=== PATIENT | male | born 1960 | race Caucasian/White ===

== ENCOUNTER → 2017-12-23 | Outpatient (CLI) | payer BC ==
--- NOTE | 2017-12-23 08:32 | CT ---
EXAMINATION TYPE: CT brain wo/w con DATE OF EXAM: 12/23/2017 COMPARISON: NONE HISTORY: Left sided foot tingling per patient. CT DLP: 2128.6mGycm CONTRAST: CT scan of the head is performed without and with IV Contrast, patient injected with 100 mL of Omnipa que 300. Unenhanced followed by contrast enhanced CT of the brain is submitted for evaluation. The ventricles are midline. There is no evidence for intracranial hemorrhage or extra-axial collecti on. No mass effects are identified. Visualized bony calvarium is intact. There is calcification of the anterior interhemispheric fissure. Contrast is administered and no enhancing lesions are detecte d. No pathologic enhancement is identified. If symptoms persist consider MRI. IMPRESSION: 1. No evidence for enhancing meningioma or other lesion.
== END | disposition home or self-care (01) ==
LOC: RADCTMAIN 07:59
PROVIDERS: ATTEND Psychiatry & Neurology Neurology
DX: D32.0 Benign neoplasm of cerebral meninges (principal)
CPT/HCPCS: 70470; Q9967

== ENCOUNTER 2018-11-13 11:23 | Observation (INO) | payer BC ==
--- NOTE | 2018-11-13 12:27 | ED ---
General Adult HPI - General Chief complaint: Chest Pain Stated complaint: chest pain Time Seen by Provider: 11/13/18 12:18 Source: patient, RN notes reviewed, old records reviewed Mode of arrival: wheelchair Limitations: physical limitation (Patient hard of hearing) - History of Present Illness Initial comments: 57-year-old male presenting for evaluation of chest pain. Patient is very hard of hearing and history somewhat difficult. Patient states he's had intermittent chest pain for the past one week. This is substernal. Patient denies nausea or vomiting. Denies abdominal pain. Denies diaphoresis. Patient has no known history of coronary artery disease, he has a very strong family history including a father and brother who in their early 50s. Patient has hypercholesterolemia. He is a previous smoker, quit 5 months ago. No pain at the time my evaluation. - Related Data Home Medications Medication Instructions Recorded Confirmed Multivit-Mins/Iron/Folic/Lycop 1 each PO DAILY 01/31/16 01/31/16 [Centrum Men's Tablet] Gabapentin [Neurontin] caplet PO DAILY 02/03/16 02/03/16 Allergies Allergy/AdvReac Type Severity Reaction Status Date / Time atorvastatin Allergy achy Verified 11/13/18 11:55 joints & muscles fenofibrate Allergy warm, Verified 11/13/18 11:55 itchy, rash fenofibrate nanocrystallized Allergy warm, Verified 11/13/18 11:55 [From Tricor] itchy, rash fenofibrate,micronized Allergy warm, Verified 11/13/18 11:55 [From Tricor] itchy, rash gemfibrozil Allergy Rash/Hives Verified 11/13/18 13:41 niacin Allergy warm, Verified 11/13/18 11:55 [From Niaspan itchy, rash Extended-Release] pravastatin Allergy Rash/Hives Verified 11/13/18 13:41 Review of Systems ROS Statement: Those systems with pertinent positive or pertinent negative responses have been documented in the HPI. ROS Other: All systems not noted in ROS Statement are negative. Past Medical History Past Medical History: Hyperlipidemia Additional Past Medical History / Comment(s): clausterphobia, hard of hearing History of Any Multi-Drug Resistant Organisms: None Reported Additional Past Surgical History / Comment(s): tooth abscess, colonoscpy Past Anesthesia/Blood Transfusion Reactions: No Reported Reaction Additional Past Anesthesia/Blood Transfusion Reaction / Comment(s): never recv' d anesthesia or blood transfusion Past Psychological History: Anxiety Smoking Status: Current every day smoker Past Alcohol Use History: Heavy Past Drug Use History: None Reported - Past Family History Mother Family Medical History: Coronary Artery Disease (CAD), Hyperlipidemia Father Family Medical History: COPD, Myocardial Infarction ([place]) General Exam Limitations: no limitations General appearance: alert, in no apparent distress Head exam: Present: atraumatic, normocephalic Eye exam: Present: normal appearance, PERRL ENT exam: Present: normal exam Neck exam: Present: normal inspection. Absent: tenderness, meningismus Respiratory exam: Present: normal lung sounds bilaterally. Absent: respiratory distress, wheezes Cardiovascular Exam: Present: regular rate, normal rhythm GI/Abdominal exam: Present: soft. Absent: distended, tenderness Extremities exam: Present: normal inspection, normal capillary refill. Absent: pedal edema, calf tenderness Neurological exam: Present: alert, oriented X3, CN II-XII intact. Absent: motor sensory deficit Psychiatric exam: Present: normal affect, normal mood Skin exam: Present: warm, dry, intact. Absent: cyanosis, diaphoretic Course Vital Signs 11/13/18 11/13/18 11:55 13:10 Temperature 98 F Pulse Rate 77 83 Respiratory 18 18 Rate Blood Pressure 146/81 O2 Sat by Pulse 98 96 Oximetry EKG Findings - EKG Comments: EKG Findings:: EKG: Normal sinus rhythm, ventricular rate is 76, WA interval 154 , QRS duration 78, QTC 42, no ST segment elevation or depression Medical Decision Making - Medical Decision Making 57-year-old male history of hypercholesterolemia, this sounds like it may be a familial hypercholesterolemia however this is not documented in the medical record and the patient is uncertain. Previous history of tobacco use presenting with intermittent chest pain. EKG nonischemic. Chest x-ray negative for any acute cardiopulmonary disease, patient has normal CBC, normal CMP, initial troponin is negative. Given the patient's risk factors he will be admitted for serial cardiac enzymes, telemetry, and cardiology consultation. Case is discussed with admitting physician Dr. Gutierrez - Lab Data Result diagrams: 11/13/18 12:12 11/13/18 12:12 Lab Results 11/13/18 11/13/18 11/13/18 Range/Units 12:12 12:12 12:12 WBC 6.5 (3.8-10.6) k/uL RBC 5.10 (4.30-5.90) m/uL Hgb 15.6 (13.0-17.5) gm/dL Hct 45.5 (39.0-53.0) % MCV 89.2 (80.0-100.0) fL MCH 30.5 (25.0-35.0) pg MCHC 34.2 (31.0-37.0) g/dL RDW 11.9 (11.5-15.5) % Plt Count 209 (150-450) k/uL Neutrophils % 62 % Lymphocytes % 30 % Monocytes % 5 % Eosinophils % 1 % Basophils % 1 % Neutrophils # 4.1 (1.3-7.7) k/uL Lymphocytes # 1.9 (1.0-4.8) k/uL Monocytes # 0.3 (0-1.0) k/uL Eosinophils # 0.1 (0-0.7) k/uL Basophils # 0.0 (0-0.2) k/uL PT (9.0-12.0) sec INR (<1.2) APTT (22.0-30.0) sec Sodium 143 (137-145) mmol/L Potassium 4.5 (3.5-5.1) mmol/L Chloride 107 (98-107) mmol/L Carbon Dioxide 24 (22-30) mmol/L Anion Gap 12 mmol/L BUN 13 (9-20) mg/dL Creatinine 0.65 L (0.66-1.25) mg/dL Est GFR (CKD-EPI)AfAm >90 (>60 ml/min/1.73 sqM) Est GFR (CKD-EPI)NonAf >90 (>60 ml/min/1.73 sqM) Glucose 102 H (74-99) mg/dL Calcium 10.2 (8.4-10.2) mg/dL Magnesium 2.0 (1.6-2.3) mg/dL Total Bilirubin 0.5 (0.2-1.3) mg/dL AST 29 (17-59) U/L ALT 48 (21-72) U/L Alkaline Phosphatase 87 (38-126) U/L Total Creatine Kinase 88 (55-170) U/L CK-MB (CK-2) 1.0 (0.0-2.4) ng/mL CK-MB (CK-2) Rel Index 1.1 Troponin I <0.012 (0.000-0.034) ng/mL Total Protein 8.0 (6.3-8.2) g/dL Albumin 5.0 (3.5-5.0) g/dL 11/13/18 Range/Units 12:12 WBC (3.8-10.6) k/uL RBC (4.30-5.90) m/uL Hgb (13.0-17.5) gm/dL Hct (39.0-53.0) % MCV (80.0-100.0) fL MCH (25.0-35.0) pg MCHC (31.0-37.0) g/dL RDW (11.5-15.5) % Plt Count (150-450) k/uL Neutrophils % % Lymphocytes % % Monocytes % % Eosinophils % % Basophils % % Neutrophils # (1.3-7.7) k/uL Lymphocytes # (1.0-4.8) k/uL Monocytes # (0-1.0) k/uL Eosinophils # (0-0.7) k/uL Basophils # (0-0.2) k/uL PT 10.6 (9.0-12.0) sec INR 1.0 (<1.2) APTT 25.6 (22.0-30.0) sec Sodium (137-145) mmol/L Potassium (3.5-5.1) mmol/L Chloride (98-107) mmol/L Carbon Dioxide (22-30) mmol/L Anion Gap mmol/L BUN (9-20) mg/dL Creatinine (0.66-1.25) mg/dL Est GFR (CKD-EPI)AfAm (>60 ml/min/1.73 sqM) Est GFR (CKD-EPI)NonAf (>60 ml/min/1.73 sqM) Glucose (74-99) mg/dL Calcium (8.4-10.2) mg/dL Magnesium (1.6-2.3) mg/dL Total Bilirubin (0.2-1.3) mg/dL AST (17-59) U/L ALT (21-72) U/L Alkaline Phosphatase (38-126) U/L Total Creatine Kinase (55-170) U/L CK-MB (CK-2) (0.0-2.4) ng/mL CK-MB (CK-2) Rel Index Troponin I (0.000-0.034) ng/mL Total Protein (6.3-8.2) g/dL Albumin (3.5-5.0) g/dL Disposition Clinical Impression: Chest pain Disposition: ADMITTED IP TO THIS [facility] Condition: Stable Is patient prescribed a controlled substance at d/c from ED?: No Referrals: Jimmy Hill DO [Primary Care Provider] - 1-2 days Decision to Admit Reason: Admit from EC Decision Date: 11/13/18 Decision Time: 14:18
--- NOTE | 2018-11-13 12:47 | XR ---
EXAMINATION TYPE: XR chest 2V DATE OF EXAM: 11/13/2018 COMPARISON: NONE HISTORY: Shortness of breath TECHNIQUE: Frontal and lateral views of the chest are obtained. FINDINGS: Scattered senescent parenchymal changes noted. Hyperinflation compatible with COPD. No evidence for infiltrate. No evidence for atelectasis. Heart size is stable. Mediastinal structures are stable and grossly unremarkable. No evidence for hilar prominence. Degenerative changes dorsal spine. IMPRESSION: 1. No evidence for acute pulmonary disease.
[2018-11-13 12:54] LABS: Basophils % (A) 1 %; Eosinophils # (A) 0.1 k/uL (0-0.7); Eosinophils % (A) 1 %; HCT 45.5 % (39.0-53.0); HGB 15.6 gm/dL (13.0-17.5); Lymphocytes # (A) 1.9 k/uL (1.0-4.8); Lymphocytes % (A) 30 %; MCH 30.5 pg (25.0-35.0); MCHC 34.2 g/dL (31.0-37.0); MCV 89.2 fL (80.0-100.0); Mean Platelet Volume 9.4; Monocytes # (A) 0.3 k/uL (0-1.0); Monocytes % (A) 5 %; Neutrophils # (A) 4.1 k/uL (1.3-7.7); Neutrophils % (A) 62 %; Platelet Count 209 k/uL (150-450); RDW 11.9 % (11.5-15.5); WBC 6.5 k/uL (3.8-10.6)
[2018-11-13 13:01] LABS: ALT 48 U/L (21-72); AST 29 U/L (17-59); Alkaline Phosphatase 87 U/L (38-126); Anion Gap 12 mmol/L; Blood Urea Nitrogen 13 mg/dL (9-20); Calcium 10.2 mg/dL (8.4-10.2); Carbon Dioxide 24 mmol/L (22-30); Chloride 107 mmol/L (98-107); Glucose 102 mg/dL (74-99); Potassium 4.5 mmol/L (3.5-5.1); Sodium 143 mmol/L (137-145); Total Bilirubin 0.5 mg/dL (0.2-1.3)
[2018-11-13 13:03] LABS: Partial Thromboplastin Time 25.6 sec (22.0-30.0); Prothrombin Time 10.6 sec (9.0-12.0)
[2018-11-13 13:07] LABS: Creatine Kinase 88 U/L (55-170)
[2018-11-13 13:20] LABS: Troponin I <0.012 ng/mL (0.000-0.034)
[2018-11-13] MEDS ORDERED: ASPIRIN 325 MG TAB PO STA (13:22)
[2018-11-13] MEDS ORDERED: NITROGLYCERIN SL TABS 0.4 MG TAB SUBLINGUAL PRN (14:13)
[2018-11-13] MEDS: MAG HYDROX/AL HYDROX/SIMETH 30 ML CUP PO SCH ×2 (19:38→23:10)
--- NOTE | 2018-11-13 20:10 | ECHOF ---
Referral Reason:Chest pain MEASUREMENTS -------- HEIGHT: 170.2 cm WEIGHT: 67.1 kg BP: IVSd: 0.8 cm (0.6 - 1.1) LVIDd: 4.7 cm (3.9 - 5.3) LVPWd: 1.1 cm (0.6 - 1.1) IVSs: 1.5 cm LVIDs: 2.8 cm LVPWs: 1.8 cm Ao Diam: 3.3 cm (2.0 - 3.7) AV Cusp: 2.1 cm (1.5 - 2.6) LA Diam: 3.6 cm (2.7 - 3.8) MV EXCURSION: 22.907 mm (> 18.000) MV EF SLOPE: 97 mm/s (70 - 150) EPSS: 2.3 cm MV E Jv: 0.73 m/s MV DecT: 238 ms MV A Jv: 0.63 m/s MV E/A Ratio: 1.15 RAP: 5.00 mmHg RVSP: 14.49 mmHg FINDINGS -------- Sinus rhythm. This was a technically good study. The left ventricular size is normal. Left ventricular wall thickness is normal. Overall left vent ricular systolic function is normal with, an EF between 55 - 60 %. The right ventricle is normal in size and function. The left atrium is normal in size. The right atrium is normal in size. Aortic valve is trileaflet and is mildly thickened. There is trace mitral regurgitation. Trace tricuspid regurgitation present. The right ventricular systolic pressure, as measured by Dopp ler, is 14.49mmHg. Pulmonic valve appears structurally normal. The aortic root size is normal. Normal inferior vena cava with normal inspiratory collapse consistent with estimated right atrial pre ssure of 5 mmHg. The pericardium is normal. CONCLUSIONS -------- 1. Sinus rhythm. 2. This was a technically good study. 3. The left ventricular size is normal. 4. Left ventricular wall thickness is normal. 5. Overall left ventricular systolic function is normal with, an EF between 55 - 60 %. 6. The right ventricle is normal in size and function. 7. The left atrium is normal in size. 8. The right atrium is normal in size. 9. Aortic valve is trileaflet and is mildly thickened. 10. There is trace mitral regurgitation. 11. Trace tricuspid regurgitation present. 12. The right ventricular systolic pressure, as measured by Doppler, is 14.49mmHg. 13. Pulmonic valve appears structurally normal. 14. The aortic root size is normal. 15. Normal inferior vena cava with normal inspiratory collapse consistent with estimated right atrial pressure of 5 mmHg. 16. The pericardium is normal. [employer]: Katie Viveros RDCS
[2018-11-13 20:15] LABS: Creatine Kinase 78 U/L (55-170)
[2018-11-13 20:29] LABS: Creatine Kinase MB 0.6 ng/mL (0.0-2.4); Troponin I <0.012 ng/mL (0.000-0.034)
[2018-11-13 20:55] VITALS: BMI 22.7
--- NOTE | 2018-11-13 23:09 | P.HPIM ---
History of Present Illness H&P Date: 11/13/18 Chief Complaint: Chest pain Patient is a 57-year-old male with a known history of family and hyperlipidemia and ALLERGY to multiple antihyperlipidemic medications, anxiety and everyday smoker came to ER with the complaints of chest pain. Patient says that he has been having this chest pain for the past 1 week intermittently. Pain is mainly left retrosternal, pressure-like frying marie cake on the chest, sharp and radiating to the left arm. Denied any associated nausea vomiting or diaphoresis. Denied abdominal pain. No Diarrhea. No cough or sputum production. No recent illnesses or sick contacts. Patient did quit smoking 5 months ago. Patient does have family history of coronary artery disease. Patient says that his father at the is a 50 due to heart attack and also his brother recently had MT at age 50. Patient came to ER for further evaluation. Patient's is at bedside. Patient is hard of hearing otherwise Chest x-ray showed no acute cardio pulmonary process EKG showed normal sinus rhythm. Troponin 1 negative Review of Systems Constitutional: Patient denies any fever or chills . No generalized weakness or weight loss. Abdomen: Patient denied nausea vomiting and diarrhea and abdominal pain. Cardiovascular: Patient denies any chest pain or short of breath no palpitations. Respiratory: patient denied any cough is from production. No shortness of breath Neurologic: Patient denied any numbness or tingling headache. Musculoskeletal: Patient denies any complaints of joint swelling or deformity. Skin: Negative Psychiatric: Negative Endocrine: No heat or cold intolerance. No recent weight gain. Genitourinary: No dysuria or hematuria. All other 14 point ROS negative except the above Past Medical History Past Medical History: Hyperlipidemia Additional Past Medical History / Comment(s): clausterphobia, hard of hearing History of Any Multi-Drug Resistant Organisms: None Reported Additional Past Surgical History / Comment(s): tooth abscess, colonoscpy Past Anesthesia/Blood Transfusion Reactions: No Reported Reaction Additional Past Anesthesia/Blood Transfusion Reaction / Comment(s): never recv' d anesthesia or blood transfusion Past Psychological History: Anxiety Smoking Status: Current every day smoker Past Alcohol Use History: Heavy Past Drug Use History: None Reported - Past Family History Mother Family Medical History: Coronary Artery Disease (CAD), Hyperlipidemia Father Family Medical History: COPD, Myocardial Infarction ([place]) Medications and Allergies Home Medications Medication Instructions Recorded Confirmed Type Multivit-Mins/Iron/Folic/Lycop 1 tab PO DAILY 01/31/16 11/13/18 History [Centrum Men's Tablet] Allergies Allergy/AdvReac Type Severity Reaction Status Date / Time atorvastatin Allergy achy Verified 11/13/18 16:30 joints & muscles fenofibrate Allergy warm, Verified 11/13/18 16:30 itchy, rash fenofibrate nanocrystallized Allergy warm, Verified 11/13/18 16:30 [From Tricor] itchy, rash fenofibrate,micronized Allergy warm, Verified 11/13/18 16:30 [From Tricor] itchy, rash gemfibrozil Allergy Rash/Hives Verified 11/13/18 16:30 niacin Allergy warm, Verified 11/13/18 16:30 [From Niaspan itchy, rash Extended-Release] pravastatin Allergy Rash/Hives Verified 11/13/18 16:30 Physical Exam Vitals: Vital Signs Temp Pulse Resp BP Pulse Ox 11/13/18 13:10 83 18 146/81 96 11/13/18 11:55 98 F 77 18 98 Intake and Output 11/12/18 11/13/18 11/13/18 22:59 06:59 14:59 Other: Weight 67.132 kg PHYSICAL EXAMINATION: Patient is lying in the bed comfortably, no acute distress, awake alert and oriented.. HEENT: Normocephalic. Neck is supple. Pupils reactive. Nostrils clear. Oral cavity is moist. Ears reveal no drainage. Neck reveals no JVD, carotid bruits, or thyromegaly. CHEST EXAMINATION: Trachea is central. Symmetrical expansion. Lung bedoya clear to auscultation and percussion. CARDIAC: Normal S1, S2 with no gallops. No murmurs ABDOMEN: Soft. Bowel sounds normal. No organomegaly. No abdominal bruits. Extremities: reveal no edema. No clubbing or cyanosis Neurologically awake, alert, oriented x3 with well-coordinated movements. No focal deficits noted. Hard of hearing. Skin: No rash or skin lesions. Psychiatric: Coperative. Nonsuicidal Musculoskeletal: No joint swelling or deformity. Normal range of motion. Results CBC & Chem 7: 11/13/18 12:12 11/13/18 12:12 Labs: Abnormal Lab Results - Last 24 Hours (Table) 11/13/18 Range/Units 12:12 Creatinine 0.65 L (0.66-1.25) mg/dL Glucose 102 H (74-99) mg/dL Thrombosis Risk Factor Assmnt - DVT/VTE Prophylaxis DVT/VTE Prophylaxis: Pharmacologic Prophylaxis ordered Assessment and Plan Assessment: Chest pain. Rule out ACS Familial hyperlipidemia Anxiety History of smoking quit 5 months ago Family history of coronary artery disease in his father and brother at age 50 DVT prophylaxis Plan: Patient will be continued on telemetry monitoring. Serial EKG and troponins. Cardiology was consulted. We'll check lipid panel. Patient says that he is ALLERGIC to fenofibrate or gemfibrozil and is also not taking any statins at home. Further recommendations based on the clinical course. Time with Patient: Greater than 30
[2018-11-14 00:18] LABS: Creatine Kinase 78 U/L (55-170)
[2018-11-14 00:25] LABS: Creatine Kinase MB 0.6 ng/mL (0.0-2.4)
[2018-11-14 00:31] LABS: Troponin I <0.012 ng/mL (0.000-0.034)
[2018-11-14 01:06] LABS: Cholesterol 197 mg/dL (<200); HDL Cholesterol 44 mg/dL (40-60); LDL Cholesterol,Calculated 131 mg/dL (0-99); Triglycerides 109 mg/dL (<150)
--- NOTE | 2018-11-14 08:32 | P.CRDCN ---
History of Present Illness Consult date: 11/14/18 Requesting physician: Beau Gutierrez Consult reason: chest pain Chief complaint: Chest pain History of present illness: This is a 57-year-old gentleman with history of nicotine dependence, he states that he quit smoking approximately 5 months ago, he also has a strong family history of premature coronary artery disease, hyperlipidemia, and significant hearing deficiency. He presented to the hospital with symptoms of chest discomfort, according to the patient he's been having these symptoms off and on for the past one week. He states that it feels heavy at times, but mostly it feels sharp and stabbing, he also had some discomfort down his left arm. For this reason he came to the emergency room for further evaluation. Chest x-ray on arrival here did not reveal any evidence for acute pulmonary disease. Echocardiogram with Doppler study was performed which revealed a normal left ventricular systolic function. EKG showed a normal sinus rhythm with no acute changes. Blood pressure 140/80 with a heart rate in the 80s, afebrile, 95% on room air. White blood cell count is normal, hemoglobin 15.6, platelet count 209. Sodium 143, potassium 4.5, BUN 13, creatinine 0.6. Magnesium 2.0. Troponins are negative 3. Cholesterol 197, LDL 131, triglycerides 109, HDL 44. At the time of my examination this morning patient denies any chest discomfort. Past Medical History Past Medical History: Hyperlipidemia Additional Past Medical History / Comment(s): clausterphobia, hard of hearing History of Any Multi-Drug Resistant Organisms: None Reported Additional Past Surgical History / Comment(s): tooth abscess, colonoscpy Past Anesthesia/Blood Transfusion Reactions: No Reported Reaction Additional Past Anesthesia/Blood Transfusion Reaction / Comment(s): never recv' d anesthesia or blood transfusion Past Psychological History: Anxiety Smoking Status: Current every day smoker Past Alcohol Use History: Heavy Past Drug Use History: None Reported - Past Family History Mother Family Medical History: Coronary Artery Disease (CAD), Hyperlipidemia Father Family Medical History: COPD, Myocardial Infarction ([place]) Medications and Allergies Home Medications Medication Instructions Recorded Confirmed Type Multivit-Mins/Iron/Folic/Lycop 1 tab PO DAILY 01/31/16 11/13/18 History [Centrum Men's Tablet] Allergies Allergy/AdvReac Type Severity Reaction Status Date / Time atorvastatin Allergy achy Verified 11/13/18 16:30 joints & muscles fenofibrate Allergy warm, Verified 11/13/18 16:30 itchy, rash fenofibrate nanocrystallized Allergy warm, Verified 11/13/18 16:30 [From Tricor] itchy, rash fenofibrate,micronized Allergy warm, Verified 11/13/18 16:30 [From Tricor] itchy, rash gemfibrozil Allergy Rash/Hives Verified 11/13/18 16:30 niacin Allergy warm, Verified 11/13/18 16:30 [From Niaspan itchy, rash Extended-Release] pravastatin Allergy Rash/Hives Verified 11/13/18 16:30 Physical Exam Vitals: Vital Signs Temp Pulse Pulse Resp BP BP Pulse Ox 11/14/18 04:00 98.6 F 66 16 117/72 98 11/14/18 00:00 98.6 F 68 16 141/73 96 11/13/18 20:00 98.7 F 75 18 133/69 96 11/13/18 18:52 98.4 F 73 18 132/75 94 L 11/13/18 17:54 97.2 F L 82 16 141/81 95 11/13/18 17:13 98.7 F 75 18 133/69 96 11/13/18 15:44 97.0 F L 83 16 133/75 95 11/13/18 13:10 83 18 146/81 96 11/13/18 11:55 98 F 77 18 98 Intake and Output 11/13/18 11/14/18 11/14/18 22:59 06:59 14:59 Intake Total 300 Balance 300 Intake: Oral 300 Other: Voiding Method Toilet Toilet Urinal Urinal Weight 65.9 kg 74 kg PHYSICAL EXAMINATION: GENERAL: 57-year-old gentleman in no acute distress at the time of my examination HEENT: Head is atraumatic, normocephalic. Pupils equal, round. Sclera anicteric. Conjunctiva are clear. Mucous membranes of the mouth are moist. Neck is supple. There is no elevated jugular venous pressure. No carotid bruit is heard. HEART EXAMINATION: Heart S1, S2 normal. No murmur or gallop heard. CHEST EXAMINATION: Lungs are clear to auscultation and precussion. No chest wall tenderness is noted on palpation or with deep breathing. ABDOMEN: Soft, nontender. Bowel sounds are heard. No organomegaly noted. EXTREMITIES: 2+ peripheral pulses with no evidence of peripheral edema and no calf tenderness noted. NEUROLOGIC patient is awake, alert and oriented 3. . Results 11/13/18 12:12 11/13/18 12:12 Cardiac Enzymes 11/13/18 11/13/18 11/13/18 Range/Units 12:12 12:12 19:07 AST 29 (17-59) U/L CK-MB (CK-2) 1.0 0.6 (0.0-2.4) ng/mL Troponin I <0.012 <0.012 (0.000-0.034) ng/mL 11/13/18 Range/Units 23:18 AST (17-59) U/L CK-MB (CK-2) 0.6 (0.0-2.4) ng/mL Troponin I <0.012 (0.000-0.034) ng/mL Coagulation 11/13/18 Range/Units 12:12 PT 10.6 (9.0-12.0) sec APTT 25.6 (22.0-30.0) sec Lipids 11/13/18 Range/Units 12:12 Triglycerides 109 (<150) mg/dL Cholesterol 197 (<200) mg/dL HDL Cholesterol 44 (40-60) mg/dL CBC 11/13/18 Range/Units 12:12 WBC 6.5 (3.8-10.6) k/uL RBC 5.10 (4.30-5.90) m/uL Hgb 15.6 (13.0-17.5) gm/dL Hct 45.5 (39.0-53.0) % Plt Count 209 (150-450) k/uL Comprehensive Metabolic Panel 11/13/18 Range/Units 12:12 Sodium 143 (137-145) mmol/L Potassium 4.5 (3.5-5.1) mmol/L Chloride 107 (98-107) mmol/L Carbon Dioxide 24 (22-30) mmol/L BUN 13 (9-20) mg/dL Creatinine 0.65 L (0.66-1.25) mg/dL Glucose 102 H (74-99) mg/dL Calcium 10.2 (8.4-10.2) mg/dL AST 29 (17-59) U/L ALT 48 (21-72) U/L Alkaline Phosphatase 87 (38-126) U/L Total Protein 8.0 (6.3-8.2) g/dL Albumin 5.0 (3.5-5.0) g/dL Current Medications Generic Name Dose Route Start Last Admin Trade Name Freq PRN Reason Stop Dose Admin Al Hydroxide/Mg Hydroxide 30 ml 11/13/18 18:00 11/13/18 23:10 Maalox PO 30 ml QID JACK Administration Aspirin 325 mg 11/14/18 09:00 Aspirin PO DAILY JACK Nitroglycerin 0.4 mg 11/13/18 14:13 Nitrostat SUBLINGUAL Q5M PRN Chest Pain Intake and Output 11/13/18 11/14/18 11/14/18 22:59 06:59 14:59 Intake Total 300 Balance 300 Intake: Oral 300 Other: Voiding Method Toilet Toilet Urinal Urinal Weight 65.9 kg 74 kg 11/13/18 12:12 11/13/18 12:12 EKG Interpretations (text) EKG shows a normal sinus rhythm with no acute changes. Assessment and Plan Plan: Assessment and plan #1 symptoms of chest discomfort, somewhat atypical for acute coronary syndrome. Troponins negative 3. EKG shows normal sinus rhythm with no acute changes. #2 nicotine dependence, patient states he quit smoking approximately 5 months ago. #3 family history of premature coronary artery disease #4 hyperlipidemia #5 anxiety #6 significant hearing loss Plan Echo cardiac gram with Doppler study was performed yesterday which revealed a normal left ventricular systolic function. Patient has been advised to undergo stress testing today, if the stress test is negative he may be able to be discharged from cardiology's perspective. Further recommendations to follow. DNP note has been reviewed, I agree with a documented findings and plan of care. Patient was seen and examined.
[2018-11-14 08:36] VITALS: RESP 18
[2018-11-14] MEDS: MAG HYDROX/AL HYDROX/SIMETH 30 ML CUP PO SCH ×4 (10:27→21:27)
[2018-11-14] MEDS: ASPIRIN 325 MG TAB PO SCH (10:27)
--- NOTE | 2018-11-14 18:25 | P.STRESS ---
- Stress Test Note Stress Test Results/Findings: Exam Performed: stress echo exercise Exam Date: 11/14/18 Reason for Exam: CP Height: 5 ft 7 in Weight: 73.936 kg Protocol: STRESS ECHO Stage: 3 Duration of Exercise: 9:00 Resting Heart Rate: 71 Resting Blood Pressure: 122/67 Maximum Achieved Heart Rate: 139 Maximum Achieved Blood Pressure: 173/92 85% PMHR: 139 100% PMHR: 163 METS: 10.3 Technologist Comment: Stress Test Results/Findings: This is a 57-year-old gentleman with history of smoking was admitted to the hospital with chest pain and shortness of breath and Stress data: Baseline EKG showed sinus rhythm with normal MA interval and QRS duration. Blood pressure at rest is 122/67 with a pulse rate of 71. Patient walked on a Boubacar protocol for 9 minutes and 28 seconds achieving a maximal rate of 137 with a blood pressure 173/92. EKGs taken during and after the exercise did not reveal any significant changes from the baseline. Echo data: Baseline echo images showed normal wall motion and thickening. Exercise echo images showed augmentation of wall motion and thickening in all segments. Final impression: #1. Negative stress test #2. Negative stress echo
[2018-11-15] MEDS: ASPIRIN 325 MG TAB PO SCH (09:22)
[2018-11-15] MEDS: MAG HYDROX/AL HYDROX/SIMETH 30 ML CUP PO SCH (09:22)
[2018-11-15 09:25] VITALS: PULSE 78
--- NOTE | 2018-11-15 13:20 | P.PN ---
Subjective Patient is doing well no chest discomfort dizziness lightheadedness or palpitations Vitals are stable he's afebrile 97.9F blood pressure 124/73 mmHg Pulse rate is 1670s Heart sounds are normal normal S1 normal S2 no murmur gallop or rub Breath sounds are clear no rhonchi no crackles History of stress test was normal, normal stress echo Plan Discharge on Crestor 10 mg daily I will see him again in about 3-4 weeks Objective - Vital Signs Vital signs: Vital Signs Temp 97.9 F 11/15/18 08:00 Pulse 78 11/15/18 08:00 Resp 18 11/15/18 08:00 BP 124/73 11/15/18 08:00 Pulse Ox 96 11/15/18 08:00 Intake & Output 11/14/18 11/15/18 11/15/18 18:59 06:59 18:59 Intake Total 120 462 Output Total 800 Balance 120 -338 Weight 73.936 kg 74.3 kg Intake: Oral 120 462 Output: Urine 800 Other: Voiding Method Toilet Toilet Urinal Urinal # Voids 2 1 # Bowel Movements 0 - Labs CBC & Chem 7: 11/13/18 12:12 11/13/18 12:12
[2018-11-15 14:55] VITALS: BP 127/77; TEMP 97.3
--- NOTE | 2018-11-15 23:22 | P.PN ---
Subjective Progress Note Date: 11/14/18 Principal diagnosis: Chest pain Patient is a 57-year-old male with a known history of family and hyperlipidemia and ALLERGY to multiple antihyperlipidemic medications, anxiety and everyday smoker came to ER with the complaints of chest pain. Patient says that he has been having this chest pain for the past 1 week intermittently. Pain is mainly left retrosternal, pressure-like frying marie cake on the chest, sharp and radiating to the left arm. Denied any associated nausea vomiting or diaphoresis. Denied abdominal pain. No Diarrhea. No cough or sputum production. No recent illnesses or sick contacts. Patient did quit smoking 5 months ago. Patient does have family history of coronary artery disease. Patient says that his father at the is a 50 due to heart attack and also his brother recently had SD at age 50. Patient came to ER for further evaluation. Patient's is at bedside. Patient is hard of hearing otherwise Chest x-ray showed no acute cardio pulmonary process EKG showed normal sinus rhythm. Troponin 1 negative 11/14/2018 Patient denied any complaints of chest pain today. Serial troponins are negative. Patient was seen by cardiology and recommended stress test today. Otherwise cholesterol level total is 193 and LDL 131. Patient says that he is ALLERGIC to statins. No nausea vomiting or abdominal pain. No shortness of breath. Current medications reviewed Objective - Vital Signs Vital signs: Vital Signs Temp 97.9 F 11/15/18 08:00 Pulse 78 11/15/18 08:00 Resp 18 11/15/18 08:00 BP 124/73 11/15/18 08:00 Pulse Ox 96 11/15/18 08:00 Intake & Output 11/14/18 11/15/18 11/15/18 18:59 06:59 18:59 Intake Total 120 462 Output Total 800 Balance 120 -338 Weight 73.936 kg 74.3 kg Intake: Oral 120 462 Output: Urine 800 Other: Voiding Method Toilet Toilet Urinal Urinal # Voids 2 1 # Bowel Movements 0 - Exam PHYSICAL EXAMINATION: Patient is lying in the bed comfortably, no acute distress, awake alert and oriented.. HEENT: Normocephalic. Neck is supple. Pupils reactive. Nostrils clear. Oral cavity is moist. Ears reveal no drainage. Neck reveals no JVD, carotid bruits, or thyromegaly. CHEST EXAMINATION: Trachea is central. Symmetrical expansion. Lung bedoya clear to auscultation and percussion. CARDIAC: Normal S1, S2 with no gallops. No murmurs ABDOMEN: Soft. Bowel sounds normal. No organomegaly. No abdominal bruits. Extremities: reveal no edema. No clubbing or cyanosis Neurologically awake, alert, oriented x3 with well-coordinated movements. No focal deficits noted. Hard of hearing. Skin: No rash or skin lesions. Psychiatric: Coperative. Nonsuicidal Musculoskeletal: No joint swelling or deformity. Normal range of motion. - Labs CBC & Chem 7: 11/13/18 12:12 11/13/18 12:12 Assessment and Plan Assessment: Chest pain. Ruled out ACS. Status post exercise stress echo Familial hyperlipidemia questionable. Anxiety History of smoking quit 5 months ago Family history of coronary artery disease in his father and brother at age 50 DVT prophylaxis Plan: Patient will be continued on telemetry monitoring. Serial EKG and troponins negative. Cardiology was consulted. Patient says that he is ALLERGIC to fenofibrate or gemfibrozil and is also not taking any statins at home. Further recommendations based on the clinical course.
--- NOTE | 2018-11-15 23:25 | P.DS ---
Providers Date of admission: 11/13/18 14:13 Expected date of discharge: 11/15/18 Attending physician: Beau Gutierrez Consults: 11/13/18 14:13 Consult Physician Urgent Consulting Provider: Matty Burgos Consult Reason/Comments: CP Do you want consulting provider notified?: Yes Primary care physician: [facility] Course: Discharge diagnosis Chest pain. Ruled out ACS. Status post exercise stress echo Familial hyperlipidemia questionable. Total cholesterol 197 and LDL 131 Anxiety History of smoking quit 5 months ago Family history of coronary artery disease in his father and brother at age 50 DVT prophylaxis Hospital course Patient is a 57-year-old male with a known history of family and hyperlipidemia and ALLERGY to multiple antihyperlipidemic medications, anxiety and everyday smoker came to ER with the complaints of chest pain. Patient says that he has been having this chest pain for the past 1 week intermittently. Pain is mainly left retrosternal, pressure-like frying marie cake on the chest, sharp and radiating to the left arm. Denied any associated nausea vomiting or diaphoresis. Denied abdominal pain. No Diarrhea. No cough or sputum production. No recent illnesses or sick contacts. Patient did quit smoking 5 months ago. Patient does have family history of coronary artery disease. Patient says that his father at the is a 50 due to heart attack and also his brother recently had MS at age 50. Patient came to ER for further evaluation. Patient's is at bedside. Patient is hard of hearing otherwise Chest x-ray showed no acute cardio pulmonary process EKG showed normal sinus rhythm. Troponin 1 negative 11/14/2018 Patient denied any complaints of chest pain today. Serial troponins are negative. Patient was seen by cardiology and recommended stress test today. Otherwise cholesterol level total is 193 and LDL 131. Patient says that he is ALLERGIC to statins. No nausea vomiting or abdominal pain. No shortness of breath. 11/15/2018 Patient had exercise stress echocardiogram yesterday which is negative. Patient was started on Crestor 10 mg at bedtime as per cardiology recommendations. Otherwise patient is stable to be discharged home. Discussed with the patient and his girlfriend at bedside in detail. PHYSICAL EXAMINATION: Patient is lying in the bed comfortably, no acute distress, awake alert and oriented.. HEENT: Normocephalic. Neck is supple. Pupils reactive. Nostrils clear. Oral cavity is moist. Ears reveal no drainage. Neck reveals no JVD, carotid bruits, or thyromegaly. CHEST EXAMINATION: Trachea is central. Symmetrical expansion. Lung bedoya clear to auscultation and percussion. CARDIAC: Normal S1, S2 with no gallops. No murmurs ABDOMEN: Soft. Bowel sounds normal. No organomegaly. No abdominal bruits. Extremities: reveal no edema. No clubbing or cyanosis Neurologically awake, alert, oriented x3 with well-coordinated movements. No focal deficits noted. Hard of hearing. Skin: No rash or skin lesions. Psychiatric: Coperative. Nonsuicidal Musculoskeletal: No joint swelling or deformity. Normal range of motion. Vital Signs - 24 hr 11/15/18 11/15/18 11/15/18 00:00 04:00 08:00 Temperature 97.0 F L 96.9 F L 97.9 F Pulse Rate [ 66 66 78 Pulse Oximetery ] Respiratory 18 18 18 Rate Blood Pressure 127/67 117/57 124/73 [Right Arm] O2 Sat by Pulse 96 95 96 Oximetry 11/15/18 12:00 Temperature 97.3 F L Pulse Rate [ 68 Pulse Oximetery ] Respiratory 18 Rate Blood Pressure 127/77 [Right Arm] O2 Sat by Pulse 97 Oximetry Total time taken greater than 35 minutes including 18 minutes for counseling and coordination of care. Patient Condition at Discharge: Stable Plan - Discharge Summary Discharge Rx Participant: No New Discharge Prescriptions: New Rosuvastatin Calcium [Crestor] 10 mg PO DAILY #30 tab Continue Multivit-Mins/Iron/Folic/Lycop [Centrum Men's Tablet] 1 tab PO DAILY Discharge Medication List Multivit-Mins/Iron/Folic/Lycop [Centrum Men's Tablet] 1 tab PO DAILY 01/31/16 [ History] Rosuvastatin Calcium [Crestor] 10 mg PO DAILY #30 tab 11/15/18 [Rx] Follow up Appointment(s)/Referral(s): Matty Burgos MD [STAFF PHYSICIAN] - 11/28/18 9:00 am (With [facility] Jimmy Hill DO [Primary Care Provider] - 11/25/18 8:20 am (With [facility]) Patient Instructions/Handouts: Chest Pain (DC), Cholesterol and Your Health ( GEN), Cardiac Stress Test (DC) Discharge Disposition: HOME SELF-CARE
--- NOTE | 2018-11-20 16:21 | ECHOS ---
Stress Test Results/Findings: Exam Performed: stress echo exercise Exam Date: 11/14/18 Reason for Exam: CP Height: 5 ft 7 in Weight: 73.936 kg Protocol: STRESS ECHO Stage: 3 Duration of Exercise: 9:00 Resting Heart Rate: 71 Resting Blood Pressure: 122/67 Maximum Achieved Heart Rate: 139 Maximum Achieved Blood Pressure: 173/92 85% PMHR: 139 100% PMHR: 163 METS: 10.3 Technologist Comment: Stress Test Results/Findings: This is a 57-year-old gentleman with history of smoking was admitted to the hospital with chest pain and shortness of breath and Stress data: Baseline EKG showed sinus rhythm with normal ME interval and QRS duration. Blood pressure at rest is 122/67 with a pulse rate of 71. Patient walked on a Boubacar protocol for 9 minutes and 28 seconds achieving a maximal rate of 137 with a blood pressure 173/92. EKGs taken during and after the exercise did not reveal any significant changes from the baseline. Echo data: Baseline echo images showed normal wall motion and thickening. Exercise echo images showed augmentation of wall motion and thickening in all segments. Final impression: #1. Negative stress test #2. Negative stress echo MTDD
== END 2018-11-15 14:26 | disposition home or self-care (01) ==
LOC: EC 11:23 → 1SOBS 14:13 → 3SCARD 17:40
PROVIDERS: ADMIT Internal Medicine; ATTEND Internal Medicine
DX: R07.89 Other chest pain (principal); E78.00 Pure hypercholesterolemia, unspecified; E78.5 Hyperlipidemia, unspecified; H91.90 Unspecified hearing loss, unspecified ear; F40.240 Claustrophobia; F41.9 Anxiety disorder, unspecified; Z87.891 Personal history of nicotine dependence; Z88.8 Allergy status to other drugs, medicaments and biological substances; Z82.49 Family history of ischemic heart disease and other diseases of the circulatory system; Z82.5 Family history of asthma and other chronic lower respiratory diseases
CPT/HCPCS: 99285; 36415; 93005; 93306; 93351; 80061; 80053; 82550; 82553; 83735; 84484; 85025; 85610; 85730; 71046; G0378 ×3

== ENCOUNTER → 2018-12-05 | Outpatient (CLI) | payer BC ==
[2018-12-05 16:23] LABS: LDL Cholesterol,Calculated 98.8 mg/dL (0.0-131.0); VLDL Calculation 52.2 mg/dL (5.00-40.00)
== END ==
LOC: LABWHC1 09:26
PROVIDERS: ATTEND Internal Medicine Interventional Cardiology
DX: E78.2 Mixed hyperlipidemia (principal)
CPT/HCPCS: 36415; 80061; 84450; 84460

== ENCOUNTER 2024-04-30 09:02 | Day surgery (SDC) | payer BC ==
[2024-04-28 10:30] VITALS: BMI 26.6
--- NOTE | 2024-04-30 07:52 | P.GSHP ---
History of Present Illness H&P Date: 04/30/24 CHIEF COMPLAINT: Colon screen HISTORY OF PRESENT ILLNESS: The patient is a 63-year-old male who presents for colon screen. Lower endoscopy was offered for further evaluation and management. PAST MEDICAL HISTORY: Please see list. PAST SURGICAL HISTORY: Please see list. MEDICATIONS: Please see list. ALLERGIES: Please see list. SOCIAL HISTORY: No illicit drug use FAMILY HISTORY: No reports of Crohn disease or ulcerative colitis. REVIEW OF ORGAN SYSTEMS: CONSTITUTIONAL: No reports of fevers or chills. PHYSICAL EXAM: VITAL SIGNS: Stable GENERAL: Well-developed pleasant in no acute distress. HEENT: No scleral icterus. Extraocular movements grossly intact. Moist buccal mucosa. NECK: Supple without lymphadenopathy. CHEST: Unlabored respirations. Equal bilateral excursions. CARDIOVASCULAR: Regular rate and rhythm. Distal 2+ pulses. ABDOMEN: Soft, nontender, nondistended. MUSCULOSKELETAL: No clubbing, cyanosis, or edema. ASSESSMENT: 1. Colon screen. PLAN: 1. Recommend proceeding with a lower endoscopy Past Medical History Past Medical History: Hyperlipidemia, Hypertension Additional Past Medical History / Comment(s): CLAUSTROPHOBIA, hard of hearing History of Any Multi-Drug Resistant Organisms: None Reported Additional Past Surgical History / Comment(s): tooth abscess, COLONOSCOPY Past Anesthesia/Blood Transfusion Reactions: No Reported Reaction Additional Past Anesthesia/Blood Transfusion Reaction / Comment(s): never recv'd anesthesia or blood transfusion Smoking Status: Former smoker - Past Family History Mother Family Medical History: Coronary Artery Disease (CAD), Hyperlipidemia Father Family Medical History: COPD, Myocardial Infarction (CO) Medications and Allergies Home Medications Medication Instructions Recorded Confirmed Type Multivit-Mins/Iron/Folic/Lycop 1 tab PO DAILY 01/31/16 04/28/24 History [Centrum Men's Tablet] Ezetimibe [Zetia] 10 mg PO DAILY 04/28/24 04/28/24 History Fenofibrate 40 mg PO DAILY 04/28/24 04/28/24 History icosapent ethyL [Icosapent Ethyl] 1 gm PO BID 04/28/24 04/28/24 History lisinopriL [Zestril] 2.5 mg PO DAILY 04/28/24 04/28/24 History Allergies Allergy/AdvReac Type Severity Reaction Status Date / Time atorvastatin Allergy achy Verified 11/13/18 16:30 joints & muscles gemfibrozil Allergy Rash/Hives Verified 11/13/18 16:30 niacin Allergy warm, Verified 11/13/18 16:30 [From Pk itchy, rash Extended-Release] pravastatin Allergy Rash/Hives Verified 11/13/18 16:30
[~2024-04-30 09:02] MED LIST: LACTATED RINGERS 1,000 ML IV SCH
[2024-04-30] MEDS: IV FLUID CONTINUATION 1,000 ML IV ONE (09:20)
[2024-04-30 09:26] VITALS: TEMP 97.7
[2024-04-30] MEDS ORDERED: PROPOFOL 10 MG/ML 20 ML VIAL IV ONE (10:18)
--- NOTE | 2024-04-30 11:07 | P.PCN ---
Date of Procedure: 04/30/24 Description of Procedure: PREOPERATIVE DIAGNOSIS: Colonoscopy screening. POSTOPERATIVE DIAGNOSIS: Colonoscopy screening. Sigmoid diverticulosis OPERATION: Colonoscopy to the cecum, ileocecal valve and appendiceal orifice. SURGEON: Gem Michelle MD. ANESTHESIA: MAC. INDICATIONS: The patient is a 63-year-old male who presents for colonoscopy screening. Last colonoscopy over 10 years ago. Benefits and risks were described and informed consent was obtained. DESCRIPTION OF PROCEDURE: The patient had undergone GoLytely prep. The patient had been brought into the operating room and laid in the left lateral decubitus position. After adequate intravenous sedation, the rectum was examined with 2% lidocaine jelly. No external hemorrhoids were encountered. The rectal tone was within normal limits. No lesions were palpated in the rectal vault. An Olympus colonoscope was advanced until the cecum, ileocecal valve and appendiceal orifice were clearly viewed. The prep was excellent. Severe sigmoid diverticulosis was encountered. No colonic polyps were found. No evidence of focal colitis was found. Retroflexion of the scope demonstrated grade 1 internal hemorrhoids without active bleeding or inflammation. The colon was desufflated. The patient had tolerated the procedure well. Withdrawal time was over 6 minutes. FINDINGS: Aronchick preparation quality scale 1 (1-5) Internal hemorrhoids, grade 1 No external prolapsed hemorrhoids. No arteriovenous malformations. No adenomatous polyps. No focal colitis. Rare sigmoid diverticulosis RECOMMENDATIONS: Lower endoscopy 10 years, 2033 Plan - Discharge Summary Discharge Rx Participant: No New Discharge Prescriptions: Continue Multivit-Mins/Iron/Folic/Lycop [Centrum Men's Tablet] 1 tab PO DAILY Ezetimibe [Zetia] 10 mg PO DAILY lisinopriL [Zestril] 2.5 mg PO DAILY icosapent ethyL [Icosapent Ethyl] 1 gm PO BID Fenofibrate 40 mg PO DAILY Discharge Medication List Multivit-Mins/Iron/Folic/Lycop [Centrum Men's Tablet] 1 tab PO DAILY 01/31/16 [History] Ezetimibe [Zetia] 10 mg PO DAILY 04/28/24 [History] Fenofibrate 40 mg PO DAILY 04/28/24 [History] icosapent ethyL [Icosapent Ethyl] 1 gm PO BID 04/28/24 [History] lisinopriL [Zestril] 2.5 mg PO DAILY 04/28/24 [History] Follow up Appointment(s)/Referral(s): Gem Michelle MD [STAFF PHYSICIAN] - As Needed Patient Instructions/Handouts: Diverticulosis Diet (GEN), Diverticulosis (DC) Activity/Diet/Wound Care/Special Instructions: Continue colonoscopy 10 years, 2033 Discharge Disposition: HOME SELF-CARE
[2024-04-30 11:19] VITALS: BP 112/67; PULSE 66; RESP 18
== END 2024-04-30 11:45 | disposition home or self-care (01) ==
LOC: ORWHC2ENDO 09:02
PROVIDERS: ATTEND Surgery Plastic and Reconstructive Surgery
DX: Z12.11 Encounter for screening for malignant neoplasm of colon (principal); K57.30 Diverticulosis of large intestine without perforation or abscess without bleeding; I10 Essential (primary) hypertension; E78.5 Hyperlipidemia, unspecified; F41.9 Anxiety disorder, unspecified; Z87.891 Personal history of nicotine dependence; Z79.899 Other long term (current) drug therapy; Z88.0 Allergy status to penicillin; Z88.8 Allergy status to other drugs, medicaments and biological substances
CPT/HCPCS: 45378; J2704